=== PATIENT | female | born 1975 | race Caucasian/White ===

== ENCOUNTER 2017-01-31 16:07 | Emergency (ER) | payer OTHER ==
[~2017-01-31] VITALS: Ht 157.5 cm; Wt 44.9 kg
[~2017-01-31 16:07] MED LIST: A/B OTIC15 ML; ABILIFY5 M1 PO; BENADRYL ALLERG25 MG PO; TRAZODONE HCL50 MG PO; TYL325 PO
[2017-01-31 19:35] VITALS: BP 101/87
== END 2017-01-31 19:35 | disposition home or self-care (01) ==
LOC: ED 16:07
DX: S62.632A Displaced fracture of distal phalanx of right middle finger, initial encounter for closed fracture (principal); S61.302A Unspecified open wound of right middle finger with damage to nail, initial encounter; X58.XXXA Exposure to other specified factors, initial encounter; Y93.89 Activity, other specified; Y92.89 Other specified places as the place of occurrence of the external cause; Y99.8 Other external cause status
CPT/HCPCS: 90715; J0690

== ENCOUNTER 2017-02-07 04:57 | Emergency (ER) | payer OTHER ==
[~2017-02-07] VITALS: Ht 157.5 cm; Wt 51.7 kg
[2017-02-07 05:55] VITALS: BP 144/87
== END 2017-02-07 05:55 | disposition home or self-care (01) ==
LOC: ED 04:57
DX: S61.212D Laceration without foreign body of right middle finger without damage to nail, subsequent encounter (principal); J45.909 Unspecified asthma, uncomplicated; Z88.1 Allergy status to other antibiotic agents; X58.XXXD Exposure to other specified factors, subsequent encounter; Y99.8 Other external cause status; Y92.89 Other specified places as the place of occurrence of the external cause
CPT/HCPCS: A4570

== ENCOUNTER 2017-02-14 14:15 | Emergency (ER) | payer OTHER ==
[2017-02-14 14:18] VITALS: BP 116/78
== END 2017-02-14 15:39 | disposition home or self-care (01) ==
LOC: ED 14:15
DX: S61.212D Laceration without foreign body of right middle finger without damage to nail, subsequent encounter (principal); X58.XXXD Exposure to other specified factors, subsequent encounter; Y99.8 Other external cause status; Y92.89 Other specified places as the place of occurrence of the external cause

== ENCOUNTER 2017-03-03 14:53 | Emergency (ER) | payer OTHER ==
[2017-03-03 18:43] VITALS: BP 119/67
== END 2017-03-03 18:43 | disposition home or self-care (01) ==
LOC: ED 14:53
DX: L08.89 Other specified local infections of the skin and subcutaneous tissue (principal); F20.9 Schizophrenia, unspecified; Z79.899 Other long term (current) drug therapy
CPT/HCPCS: J0690

== ENCOUNTER 2017-03-19 22:12 | Emergency (ER) | payer OTHER ==
[2017-03-20 01:55] VITALS: BP 116/84
== END 2017-03-20 01:55 | disposition home or self-care (01) ==
LOC: ED 22:12
DX: S01.00XA Unspecified open wound of scalp, initial encounter (principal); L03.811 Cellulitis of head [any part, except face]; Z91.09 Other allergy status, other than to drugs and biological substances; X58.XXXA Exposure to other specified factors, initial encounter; Y93.89 Activity, other specified; Y92.89 Other specified places as the place of occurrence of the external cause; Y99.8 Other external cause status
CPT/HCPCS: J3490

== ENCOUNTER 2017-04-18 19:38 | Emergency (ER) | payer OTHER ==
[2017-04-18 19:46] VITALS: BP 130/92
== END 2017-04-18 20:40 | disposition home or self-care (01) ==
LOC: ED 19:38
DX: L73.8 Other specified follicular disorders (principal); L01.00 Impetigo, unspecified; L25.9 Unspecified contact dermatitis, unspecified cause

== ENCOUNTER 2017-05-19 10:56 | Emergency (ER) | payer OTHER | END 2017-05-19 11:41 | disposition left against medical advice (07) | LOC: ED 10:56 | DX: Z53.21 Procedure and treatment not carried out due to patient leaving prior to being seen by health care provider (principal) ==

== ENCOUNTER 2017-12-12 15:15 | Emergency (ER) | payer OTHER ==
[~2017-12-12] VITALS: Ht 152.4 cm; Wt 43.1 kg
[2017-12-12 15:30] VITALS: Ht 152.4 cm; Wt 43.1 kg
[2017-12-12 16:06] LABS: CALCIUM 9.1 mg/dL (8.5-10.1); CARBON DIOXIDE 27.4 mmol/L (21-32); CHLORIDE SERUM 105 mmol/L (98-107); CREATININE SERUM 0.6 mg/dL (0.6-1.0); GFR1 > 60 mL/min; GLUCOSE SERUM 106 mg/dL (74-106); SODIUM SERUM 139 mmol/L (136-145)
[2017-12-12 17:25] VITALS: BP 116/71
== END 2017-12-12 17:25 | disposition home or self-care (01) ==
LOC: ED 15:15
PROVIDERS: Emergency Medicine
DX: R53.1 Weakness (principal); Z88.1 Allergy status to other antibiotic agents

== ENCOUNTER 2018-01-18 16:18 | Emergency (ER) | payer OTHER ==
[~2018-01-18] VITALS: Ht 157.5 cm; Wt 45.4 kg
[2018-01-18 16:22] VITALS: BP 148/87; Ht 157.5 cm; Wt 45.4 kg
== END 2018-01-18 16:54 | disposition left against medical advice (07) ==
LOC: ED 16:18
DX: M79.645 Pain in left finger(s) (principal); Z88.1 Allergy status to other antibiotic agents

== ENCOUNTER 2018-05-08 22:10 | Emergency (ER) | payer OTHER | END 2018-05-09 00:35 | disposition other institution (70) | LOC: ED 22:10 | DX: Z02.89 Encounter for other administrative examinations (principal) ==

== ENCOUNTER 2018-05-08 22:10 | Emergency (ER) | payer OTHER ==
[~2018-05-08] VITALS: Ht 170.2 cm; Wt 54.4 kg
[2018-05-08 22:30] VITALS: Ht 170.2 cm; Wt 54.4 kg
[2018-05-09 00:35] VITALS: BP 124/88
== END 2018-05-09 00:35 | disposition other institution (70) ==
LOC: ED 22:10
DX: Z13.89 Encounter for screening for other disorder (principal); Z76.0 Encounter for issue of repeat prescription; N91.2 Amenorrhea, unspecified

== ENCOUNTER 2018-05-15 16:07 | Emergency (ER) | payer OTHER | END 2018-05-15 16:26 | disposition left against medical advice (07) | LOC: ED 16:07 | DX: Z53.21 Procedure and treatment not carried out due to patient leaving prior to being seen by health care provider (principal) ==

== ENCOUNTER 2018-05-23 19:39 | Emergency (ER) | payer OTHER ==
[~2018-05-23] VITALS: Ht 162.6 cm; Wt 59.9 kg
[2018-05-23 19:47] VITALS: Ht 162.6 cm; Wt 59.9 kg
[2018-05-23 20:58] VITALS: BP 124/68
== END 2018-05-23 20:58 | disposition home or self-care (01) ==
LOC: ED 19:39
DX: S01.05XA Open bite of scalp, initial encounter (principal); I10 Essential (primary) hypertension; J45.909 Unspecified asthma, uncomplicated; Z88.1 Allergy status to other antibiotic agents; F20.9 Schizophrenia, unspecified; W54.0XXA Bitten by dog, initial encounter; Y93.89 Activity, other specified; Y92.89 Other specified places as the place of occurrence of the external cause; Y99.8 Other external cause status

== ENCOUNTER 2018-11-13 12:45 | Emergency (ER) | payer OTHER ==
[~2018-11-13] VITALS: Ht 152.4 cm; Wt 49.9 kg
[2018-11-13 12:53] VITALS: Ht 152.4 cm; Wt 49.9 kg
[2018-11-13 13:20] VITALS: BP 113/80
== END 2018-11-13 13:20 | disposition other institution (70) ==
LOC: ED 12:45
DX: Z02.89 Encounter for other administrative examinations (principal)

== ENCOUNTER 2019-03-23 11:51 | Emergency (ER) | payer OTHER ==
[~2019-03-23] VITALS: Ht 157.5 cm; Wt 48.1 kg
[2019-03-23 12:10] VITALS: Ht 157.5 cm; Wt 48.1 kg
[2019-03-23 13:15] LABS: AMPHETAMINE QUAL UR POSITIVE (See below)
[2019-03-23 13:15] LABS: BASOPHIL % 0.7 % (0-2); PLATELET COUNT 193 x10^3mcL (130-400)
[2019-03-23 13:17] LABS: RED CELL DISTRIBUTION WIDTH 15.5 % (11.5-14.5)
[2019-03-23 13:20] LABS: CALCIUM 9.3 mg/dL (8.5-10.1); CARBON DIOXIDE 34.7 mmol/L (21-32); CHLORIDE SERUM 105 mmol/L (98-107); CREATININE SERUM 0.7 mg/dL (0.6-1.0); GFR1 > 60 mL/min; GLUCOSE SERUM 91 mg/dL (74-106); POTASSIUM SERUM 3.9 mmol/L (3.5-5.1); SODIUM SERUM 144 mmol/L (136-145)
[2019-03-23 13:24] LABS: ALBUMIN 3.6 g/dL (3.4-5.0); ALKALINE PHOSPHATASE 71 U/L (46-116); ALT/SGPT 28 U/L (14-59); AST/SGOT 6 U/L (15-37); BILIRUBIN TOTAL 0.2 mg/dL (0.20-1.00); TOTAL PROTEIN, SERUM 7.6 g/dL (6.4-8.2)
[2019-03-23 14:41] VITALS: BP 115/76
== END 2019-03-23 14:41 | disposition other institution (70) ==
LOC: ED 11:51
PROVIDERS: Emergency Medicine
DX: Z02.89 Encounter for other administrative examinations (principal)
CPT/HCPCS: G0480

== ENCOUNTER 2019-03-23 11:51 | Emergency (ER) | payer OTHER | END 2019-03-23 14:41 | disposition other institution (70) | LOC: ED 11:51 | DX: Z02.89 Encounter for other administrative examinations (principal) | CPT/HCPCS: 36415; G0480 ==